=== PATIENT | female | born 1975 | race Two or more races ===

== ENCOUNTER 2024-01-23 18:55 | Emergency (ER) | payer OTHER ==
[~2024-01-23] VITALS: Ht 157.5 cm; Wt 70.3 kg
[~2024-01-23 18:55] MED LIST: ALTACE10 MG
[2024-01-23 19:24] VITALS: BP 143/93; O2SAT 100
[2024-01-23] MEDS ORDERED: TRAMADOL HCL 50 MG TABLET PO ONE (20:00)
== END 2024-01-23 22:21 | disposition home or self-care (01) ==
LOC: ER 18:56
DX: S30.0XXA Contusion of lower back and pelvis, initial encounter (principal); V49.9XXA Car occupant (driver) (passenger) injured in unspecified traffic accident, initial encounter; Y93.89 Activity, other specified; Y92.413 State road as the place of occurrence of the external cause; Y99.9 Unspecified external cause status; I10 Essential (primary) hypertension; N20.0 Calculus of kidney; Z88.8 Allergy status to other drugs, medicaments and biological substances